=== PATIENT | female | born 1975 | race Caucasian/White ===

== ENCOUNTER 2018-09-21 06:55 | Day surgery (SDC) | payer OTHER ==
[2018-09-21] MEDS ORDERED: MIDAZOLAM 1 MG/ML 2 ML INJ ×2 (09:08)
[2018-09-21] MEDS ORDERED: FENTAnyl 50 MCG/ML VIAL (09:09)
== END 2018-09-21 11:30 | disposition home or self-care (01) ==
LOC: GIL 06:55
DX: R19.4 Change in bowel habit (principal); K64.8 Other hemorrhoids; K21.9 Gastro-esophageal reflux disease without esophagitis
CPT/HCPCS: 43239; 84703; 88305; 88312